=== PATIENT | male | born 1995 | race Hispanic/Latino ===

== ENCOUNTER 2022-06-09 15:08 | Outpatient (CLI) | payer BC | END 2022-06-09 15:09 | disposition home or self-care (01) | LOC: NAV RAD 15:08 | PROVIDERS: ATTEND Family Medicine | DX: S33.5XXA Sprain of ligaments of lumbar spine, initial encounter (principal) | CPT/HCPCS: 72100 ==

== ENCOUNTER 2023-02-08 11:59 | Outpatient (CLI) | payer OTHER | END 2023-02-08 12:00 | disposition home or self-care (01) | LOC: NAV RAD 11:59 | PROVIDERS: ATTEND Family Medicine | DX: M25.562 Pain in left knee (principal); M25.462 Effusion, left knee ==